=== PATIENT | male | born 1975 | race Caucasian/White ===

== ENCOUNTER → 2023-01-20 | Outpatient (CLI) | payer OTHER ==
--- NOTE | 2023-01-20 09:26 | US ---
EXAMINATION TYPE: US abdomen limited DATE OF EXAM: 01/20/2023 COMPARISON: NONE CLINICAL INDICATION: Male, 47 years old with history of R94.5 ABNORMAL RESULTS OF LIVER FUNCTION STUD IES; LFTs TECHNIQUE: Multiple sonographic images of the right upper quadrant are obtained. FINDINGS: EXAM MEASUREMENTS: Liver Length: 15.5 cm Gallbladder Wall: 0.2 cm CBD: 0.4 cm Right Kidney: 13.3x5.0x6.0 cm Pancreas: mostly Obscured by bowel gas Liver: upper limits, increased echogenicity and attenuation no ductal dilation, masses or cysts. Gallbladder: wnl Evidence for sonographic Flynn's sign: No CBD: wnl Right Kidney: No hydronephrosis or masses seen exam limited by bowel and body habitus IMPRESSION: 1. Hepatic steatosis. No suspicious masses. 2. No evidence for acute process.
== END | disposition home or self-care (01) ==
LOC: RADUSWWP 08:10
PROVIDERS: ATTEND Family Medicine
DX: K76.0 Fatty (change of) liver, not elsewhere classified (principal); R94.5 Abnormal results of liver function studies
CPT/HCPCS: 76705